=== PATIENT | female | born 1990 | race Caucasian/White ===

== ENCOUNTER 2017-09-08 05:00 | Inpatient (IN) ==
[2017-09-08] MEDS ORDERED: Ringers Solution, Lactated 1,000 ML ONE (05:15)
--- NOTE | 2017-09-08 05:49 | OB/GYN History & Physical ---
Date of Encounter: 09/08/17 Time of Encounter: 05:47 Assessment and Plan (1) 40 weeks gestation of Current visit: Yes Status: Acute (2) Post-dates Current visit: Yes Status: Acute Induction of labor with Cytotec and cervical [place] GBS negative Anticipate Qualifiers: Post-term type: 40-42 weeks gestation Qualified Code(s): O48.0 - Post-term (3) Encounter for planned induction of labor Current visit: Yes Status: Acute (4) MTHFR mutation (methylenetetrahydrofolate reductase) Current visit: Yes Status: Acute (5) Polyhydramnios affecting in third trimester Current visit: Yes Status: Acute History of Present Illness Chief complaint: induction of labor for post dates gestation HPI: Ms. Agudelo is a 27 year old female 40+5 weeks gestation presents to labor and delivery for induction of labor due to postdates gestation. Patient with a history of MTH FR homogenous, with normal homocystine levels, polyhydramnios in this last ultrasound on 08/11 SHANNAN 27, torch titers negative with the exception of a positive HSV, patient with history of cold sores, otherwise uncomplicated course. Patient reports good movement, denies vaginal bleeding, leaking of fluid or contractions. Labs: A+, rubella immune, GBS negative, all other serologies negative Past Med Surg Social Fam HX - Past Surgical History Surgical History: other (wisdom teeth and ear tubes as child. ) - Family History Father Family Member Ethnicity: Non- Living Status: Still Living Hx Family Cardiac Disorders: Yes (HTN) Obstetrical History - Pregnancies : 1 Para: 0 Term: 0 : 0 Ab's: 0 Livin Medications and Allergies Aspirin [Lo-Dose Aspirin EC] 81 mg PO DAILY 09/08/17 [History] Cyanocobalamin/FA/Pyridoxine [Folbic Tablet] 1 each PO DAILY 09/08/17 [History] Vit #108/Iron/FA [ One Tablet] 1 tab PO DAILY 09/08/17 [History ] 3 Allergy/AdvReac Type Severity Reaction Status Date / Time latex Allergy Hives Verified 09/08/17 05:28 Exam - Constitutional Constitutional: well developed, well nourished, no acute distress, average body habitus - Neck Neck exam: full ROM - Lungs Respiratory exam: CTAB - Cardiovascular Cardiovascular exam: RRR - Abdomen Abdomen: Present: bowel sounds normal, gravid, non tender - Extremities Extremities exam: normal capillary refill, normal inspection - Vagina Vagina: Present: normal moisture - Cervix Dilation: 1 Effacement: 75 Station: -2 - Uterus Uterus exam: Present: normal size, normal contour Results All other labs normal.
[2017-09-08] MEDS ORDERED: *HR* Nalbuphine 20 MG/ML AMPUL IVP PRN (05:52)
[2017-09-08] MEDS ORDERED: Famotidine 20 MG/2 ML VIAL IVP PRN (05:52)
[2017-09-08] MEDS ORDERED: Naloxone 0.4 MG/ML INJ IVP PRN (05:52)
[2017-09-08] MEDS ORDERED: Ondansetron 4 MG/2 ML VIAL IVP PRN (05:52)
[2017-09-08] MEDS ORDERED: Metoclopramide 10 MG/2 ML VIAL IVP PRN (05:52)
[2017-09-08] MEDS ORDERED: miSOPROStol 25 MCG TABLET PO PRN (05:58)
[2017-09-08] MEDS ORDERED: Ringers Solution, Lactated 1,000 ML IVC SCH (06:00)
[2017-09-08 06:11] LABS: Amphetamine Screen,Urine Negative ng/mL (Cutoff=1000); Barbiturate Screen,Urine Negative ng/mL (Cutoff=200); Benzodiazepines Screen,Urine Negative ng/mL (Cutoff=200); Cannabinoid Screen,Urine Negative ng/mL (Cutoff = 50); Cocaine Screen,Urine Negative ng/mL (Cutoff= 300); Opiate Screen,Urine Negative ng/mL (Cutoff=300); Phencyclidine Screen,Urine Negative ng/mL (Cutoff=25)
[2017-09-08 06:42] LABS: Basophils % 0.3 %; Eosinophils # 0.9 K/mcL (0.0-0.6); Eosinophils % 8.6 %; Hematocrit 31.8 % (35.3-44.9); Immature Granulocytes % 0.5 % (0-4); Lymphocytes # 2.1 K/mcL (0.6-4.6); Lymphocytes % 19.1 %; Mean Corpuscular HGB Conc 32.1 g/dL (31.6-35.5); Mean Corpuscular Hemoglobin 27.2 pg (28.0-33.3); Mean Corpuscular Volume 84.8 fL (83.0-100.0); Mean Platelet Volume 10.9 fL (9.4-12.4); Monocytes % 9.3 %; Neutrophils # 6.8 K/mcL (1.6-8.9); Platelet Count 217 K/mcL (140-400); Red Blood Count 3.75 M/mcL (3.82-4.97); Red Cell Distribution Width 13.5 % (11.5-14.5); Segmented Neutrophils % 62.2 %
[2017-09-08 06:49] LABS: Hemoglobin 10.2 g/dL (11.5-15.4)
[2017-09-08] MEDS ORDERED: Epidural Premix (fent/bupiv) 110 ML EP SCH (15:45)
[2017-09-08] MEDS ORDERED: Epidural Premix (fent/bupiv) 110 ML EP ONE ×2 (15:54→20:12)
--- NOTE | 2017-09-08 16:41 | Anesthesia Evaluation PreOp ---
Date of Encounter: 09/08/17 Time of Encounter: 15:50 - Past History Planned Operation: SURESH Cardiac History: Denies any Significant Hx Pulmonary History: Denies Any Significant HX SENIOR PUBLICATIONS SPECIALIST History: Denies Any Significant HX Other Medical History: Denies Any Significant HX Anesthesia History: No Prior Anesthetic Complications : Yes Test: Positive Alcohol Use: none Drug use: none Medications and Allergies Aspirin [Lo-Dose Aspirin EC] 81 mg PO DAILY 09/08/17 [History] Cyanocobalamin/FA/Pyridoxine [Folbic Tablet] 1 each PO DAILY 09/08/17 [History] Vit #108/Iron/FA [ One Tablet] 1 tab PO DAILY 09/08/17 [History ] 3 Allergy/AdvReac Type Severity Reaction Status Date / Time latex Allergy Hives Verified 09/08/17 05:28 - Meds/Allergy Pre-op Review Medications Reviewed: Yes Allergies Reviewed: Yes Beta Blockers on Current Med List: No Anesthesia Results - Labs 09/08/17 06:30 Anesthesia Exam - HEENT Pupil (Motor): Pupils equal Mallampati: II Teeth: Normal Oral Opening: Greater than 3 - SENIOR PUBLICATIONS SPECIALIST LOC: Oriented SENIOR PUBLICATIONS SPECIALIST Motor: Normal RUE, Normal LUE, Normal RLE, Normal LLE, Normal Face SENIOR PUBLICATIONS SPECIALIST Sensory: Normal: RUE, LUE, RLE, LLE, Face - Cardiac Rhythm: Regular Murmur: None JVD: No Carotid Bruit: No - Pulmonary Breath Sounds: bilateral Clear Respiratory Effort: Symmetrical Anesthesia Assess/Plan ASA Score: 2 Modified [place] Scale for Level of Consciousness: Cooperative, oriented, and tranquil Anesthetic Plan: Regional Autologous Blood: No Monitoring Plan: Standard Monitors
--- NOTE | 2017-09-08 16:44 | Anesthesia Procedures ---
Date of Encounter: 09/08/17 Time of Encounter: 15:50 Procedures: Anesthesia - Epidural/Spinal Patient ID/Chart reviewed: Yes Patient examined: Yes OB Eval: Gestational age: 40.5 OB Eval: : 1 OB Eval: Hx Para: 0 OB Eval: Contractions: Non-stressed pattern Consent Obtained: Yes Supplemental Oxygen: None/Room Air Site Prep: Aseptic Technique, Sterile prep and drape, Povidone-Iodine 1% Patient position: upright Local Anesthetic: Lidocaine 1% Amount of Local Anesthetic used: 3 Touhy Needle Gauge: 18 Touhy Needle Depth (cm): 5 Catheter Depth at Skin (cm): 7 Test Dose (1.5% Lido + Epi): Volume given (mls): 3 Test Dose Result: Negative Loading Dose Administered: Thru Catheter Infusion Rate (mls/hr): [address]: Tegaderm, Tape Interspace Used: L4-L5 Loss of Resistance (DOUGLAS): Yes Blood: No CSF: No Paresthesia: No Vitals + FHT's: stable throughout see nursing notes
[2017-09-08] MEDS ORDERED: Oxytocin 20 units/ LR 1000 mL 20 UNIT/1,000 ML BAG IVC ONE (18:09)
[2017-09-08] MEDS ORDERED: Oxytocin 20 units/ LR 1000 mL 20 UNIT/1,000 ML BAG IVC SCH (18:15)
--- NOTE | 2017-09-08 19:49 | OB Labor Progress Note ---
Date of Encounter: 09/08/17 Time of Encounter: 19:50 Labor Progress Note - Subjective Subjective: Patient still comfortable with her epidural - Cervix Cervix: 7-8/100/0 - Heart Tones Heart Tones: heart tones 140s reactive - Farrell Farrell: IUPC placed contractions every 2 min - Plan Plan: Continue current care and anticipate normal spontaneous vaginal delivery
[2017-09-08] MEDS ORDERED: *HR* Ropivacaine/PF 0.2% 20 ML VIAL ONE (20:14)
[2017-09-09] MEDS ORDERED: CeFAZolin Syringe 2,000MG/20 ML SYR IVPB ONE (02:39)
--- NOTE | 2017-09-09 02:42 | OB Labor Progress Note ---
Date of Encounter: 09/09/17 Time of Encounter: 02:40 Labor Progress Note - Subjective Subjective: Patient is very uncomfortable requesting a section. She has made no progression and has arrested at approximately 9 cm. Patient has only changed 2 cm in the last 7 hours. There is moderate amount of That noted and she does not want to proceed on any longer. Patient will be scheduled for section. - Cervix Cervix: 9/100/+1 caput noted - Heart Tones Heart Tones: heart tones 140s reactive - Wilburn Wilburn: Contractions every 2 minutes - Plan Plan: Patient will be prepared for a primary low transverse section
[2017-09-09] MEDS ORDERED: Lidocaine/EPI 1:200k 2% PF 20 ML VIAL ONE (02:47)
--- NOTE | 2017-09-09 02:49 | OB/GYN Procedure Note ---
Section - Date of procedure: 09/09/17 Preop diagnosis: other (Intrauterine at 40-5/7 weeks, arrest of descent, cephalopelvic disproportion, large for gestational age infant, polyhydramnios) Post-op diagnosis: same (with persistent occiput posterior presentation) Procedure: primary low transverse Surgeon: Brian Reese Estimated blood loss (cc): 350 Was there an research lab assistant present: No Anesthesiologist: Karissa Conrad Academic Affairs Dean: Elida Harris section complications: none Disposition: L&D Recovery Room - Infant (s) Infant A Infant Delivery Date: 09/09/17 Delivery Time: 03:21 Presentation: vertex Position: LOP Route of delivery: other ( section) Gender: Female Viability: Viable Pounds: 8 Ounces: 5 Gram Weight: 3.765 kg at 1 minute: 8 at 5 minutes: 8 Shoulder Dystocia: not encountered Placenta: spontaneous Cord: nuchal cord, 3 umbilical vessels, nuchal reduced - Narrative Narrative: Patient is a 27-year-old 1 para 0 at 40-5/7 weeks who presented to labor and delivery for induction of labor secondary to term with history of polyhydramnios patient ultrasound 5 weeks ago placing the baby at 3200 g with an SHANNAN of 27 which titers were all normal she wanted to go into labor, did advise if she had not gone into labor by 41 weeks we would induce her. Patient did received [place] catheter and Cytotec this morning this fell out approximately 4 hours later patient was artificially ruptured large amounts of clear fluid was noted. Patient was making progression but very slowly have to be augmented with Pitocin patient progressed to approximately 9 cm and could not progress past this point patient made a 2 cm progression in 7 hours with adequate contractions she became very uncomfortable started noticing moderate amount of caput and epidural was no longer working and she requested a section. Procedure: Patient was taken to the operating room where epidural anesthesia was found be adequate. She was placed in the dorsal supine position with leftward tilt prepped and draped in usual fashion. Timeout was then obtained. Pfannenstiel incision was made with a scalpel and carried down to the underlying tissue to the fascia was identified. Fascia was nicked in midline extended laterally with the Reid scissors. The superior and inferior edges of the fascia grasped tented up and dissected off the rectus muscles. Rectus muscles were in the midline parietal peritoneum was identified tented up and sharply. This was extended superiorly and inferiorly with Metzenbaum scissors. The bladder blade was inserted the vesicouterine peritoneum was identified tented up and entered sharply this is extended laterally the bladder flap was created digitally. The lower uterine segment was incised with a scalpel extended laterally with digital manipulation. The infant's head was disengaged from the pelvis without to the incision and the was fully delivered. The cord was clamped and cut the was handed off to waiting pediatric team. Cord blood was collected, placenta was then spontaneously delivered and the uterus was exteriorized and cleaned of all clots and debris. The lower uterine segment was then closed using an 0 Vicryl in a running locking stitch by a 2 layer closure. Good hemostasis was noted. The uterus was returned to the abdomen, the gutters were cleaned of all clots and debris and copiously irrigated. The fascia was closed using a #1 stratafix in a running stitch and the skin was closed using a 4-0 Vicryl in a subcuticular manner. A PRIMEO dressing was applied and then the patient was taken to the recovery room in stable condition. All needles lap sponge counts were correct 3 she did receive preoperative antibiotics.
[2017-09-09] MEDS ORDERED: CeFAZolin Premix DUPLEX 2,000 MG/50 ML BAG IVPB ONE (03:00)
[2017-09-09] MEDS ORDERED: Ondansetron 4 MG/2 ML VIAL IVP PRN ×3 (03:15→06:37)
[2017-09-09] MEDS ORDERED: *HR* OxyCODONE/APAP 5/325 TABLET PO PRN (03:15)
[2017-09-09] MEDS ORDERED: Ibuprofen 400 MG TABLET PO PRN (03:15)
[2017-09-09] MEDS ORDERED: Acetaminophen IV 1,000 MG/100 ML INFUS..BTL IVPB STA (03:21)
[2017-09-09] MEDS ORDERED: Dexamethasone 4 MG/ML VIAL ONE (03:27)
[2017-09-09] MEDS ORDERED: *HR* Oxytocin 10 UNIT/ML VIAL IM ONE (03:27)
[2017-09-09] MEDS ORDERED: Morphine Sulfate/PF 5mg/10mL Vial ONE (03:27)
[2017-09-09] MEDS ORDERED: Acetaminophen IV 1,000 MG/100 ML INFUS..BTL IVPB ONE (06:37)
[2017-09-09] MEDS ORDERED: Sennosides 8.6 MG TABLET PO PRN (06:37)
[2017-09-09] MEDS ORDERED: Oxytocin 20 units/ LR 1000 mL 20 UNIT/1,000 ML BAG IVC SCH (06:37)
[2017-09-09] MEDS ORDERED: Ringers Solution, Lactated 1,000 ML IVC SCH (06:37)
[2017-09-09] MEDS ORDERED: Metoclopramide 10 MG/2 ML VIAL IVP PRN (06:37)
[2017-09-09] MEDS ORDERED: Ibuprofen 600 MG TABLET PO PRN (06:37)
[2017-09-09] MEDS ORDERED: NON-FORMULARY MEDICATION 1 EACH EACH (Prenatal Vit #108/Iron/Fa [Prenatal One Tablet] 1 TA PO SCH (09:00)
[2017-09-09] MEDS ORDERED: Cyanocobalamin (B-12) 1,000 MCG TABLET PO SCH (09:00)
[2017-09-09] MEDS: Prenatal Vit/FA 1 EACH TABLET PO SCH (12:11)
[2017-09-09] MEDS: Aspirin Enteric Coated 81 MG Tablet PO SCH (12:11)
[2017-09-09] MEDS: Pyridoxine (B-6) 50 MG TABLET PO SCH (12:11)
[2017-09-09] MEDS: Acetaminophen 325 MG TABLET PO PRN ×2 (13:41→20:07)
[2017-09-09] MEDS: Simethicone 80 MG TAB.CHEW PO PRN (15:03)
[2017-09-09] MEDS ORDERED: Lanolin 7 G OINT...G. TP PRN (16:30)
[2017-09-10] MEDS: Acetaminophen 325 MG TABLET PO PRN ×4 (04:01→20:14)
[2017-09-10] MEDS: *HR* OxyCODONE Immed Rel 5 MG TABLET PO PRN ×4 (04:02→20:14)
[2017-09-10 04:48] LABS: Basophils % 0.2 %; Eosinophils # 0.2 K/mcL (0.0-0.6); Eosinophils % 1.3 %; Hematocrit 26.8 % (35.3-44.9); Hemoglobin 8.5 g/dL (11.5-15.4); Lymphocytes % 13.8 %; Mean Corpuscular HGB Conc 31.7 g/dL (31.6-35.5); Mean Corpuscular Hemoglobin 27.5 pg (28.0-33.3); Mean Corpuscular Volume 86.7 fL (83.0-100.0); Mean Platelet Volume 10.7 fL (9.4-12.4); Monocytes % 6.7 %; Neutrophils # 11.1 K/mcL (1.6-8.9); Platelet Count 164 K/mcL (140-400); Red Blood Count 3.09 M/mcL (3.82-4.97); Red Cell Distribution Width 14.2 % (11.5-14.5)
--- NOTE | 2017-09-10 10:09 | OB/GYN Progress Note ---
Date of Encounter: 09/10/17 Time of Encounter: 10:07 - Assessment and Plan (1) MTHFR mutation (methylenetetrahydrofolate reductase) Current Visit: Yes Status: Acute (2) Status post delivery Current Visit: Yes Status: Acute Stable POD #1 Continue current management Anticipate discharge tomorrow (3) anemia Current Visit: Yes Status: Acute Will increase iron to twice daily Subjective - Subjective Interval history: Patient tolerating by mouth diet, pain well managed on by mouth pain medication , voiding without difficulty, no flatus at this time, but positive bowel sounds and no nausea Patient reports: appetite normal, voiding normally, pain well controlled, ambulating normally : doing well Objective - Vital Signs Latest vital signs: Vital Signs Temp Pulse Resp BP Pulse Ox 09/09/17 23:45 98.4 F 81 14 130/80 98 09/09/17 20:05 98.4 F 98 14 129/71 97 09/09/17 17:00 98.5 F 86 16 121/79 09/09/17 11:48 97.6 F 90 18 130/78 96 Intake and Output 09/09/17 09/10/17 09/10/17 23:59 07:59 15:59 Intake Total 400 / 400 Output Total 1150 / 1150 400 / 400 Balance -750 / -750 -400 / -400 Intake: Oral 400 / 400 Output: Urine 100 / 100 400 / 400 Catheter 1050 / 1050 Other: Weight 69.354 kg Patient Weight 09/10/17 23:59 Weight 69.354 kg - Exam Lungs: bilateral: normal Chest: Normal S1, Normal S2 Extremities: Present: normal Abdomen: Present: normal appearance, soft Incision: Present: normal, dry, intact, dressed Uterus: Present: firm Comments: Fundus firm at umbilicus - Labs Labs: Laboratory Results - last 24 hr 09/10/17 04:10 WBC 14.4 H RBC 3.09 L Hgb 8.5 L D Hct 26.8 L MCV 86.7 MCH 27.5 L MCHC 31.7 RDW 14.2 Plt Count 164 MPV 10.7 Immature Gran % 1.0 Seg Neutrophils % 77.0 Lymphocytes % 13.8 Monocytes % 6.7 Eosinophils % 1.3 Basophils % 0.2 Neutrophils # 11.1 H Lymphocytes # 2.0 Monocytes # 1.0 Eosinophils # 0.2 Basophils # 0.0
[2017-09-10] MEDS: Aspirin Enteric Coated 81 MG Tablet PO SCH (10:28)
[2017-09-10] MEDS: Prenatal Vit/FA 1 EACH TABLET PO SCH (10:28)
[2017-09-10] MEDS: Pyridoxine (B-6) 50 MG TABLET PO SCH (10:28)
[2017-09-10] MEDS: Simethicone 80 MG TAB.CHEW PO PRN (15:39)
[2017-09-11] MEDS: *HR* OxyCODONE Immed Rel 5 MG TABLET PO PRN ×2 (00:30→08:44)
--- NOTE | 2017-09-11 09:40 | Discharge Summary ---
Date of Encounter: 09/11/17 Time of Encounter: 09:37 - Discharge Diagnosis (1) anemia Priority: Secondary Status: Acute Comments: hgb 8.5 from 10.2 prior to delivery. She reports some mild dizziness with ambulation shortly after delivery but none recently. Home on iron. (2) Status post delivery Priority: Primary Status: Acute Comments: Pt meeting all milestones. She desires discharge home today. - Discharge Medications Prescriptions: Breast Pump [BREAST PUMP] 1 each .ROUTE AD #1 each Docusate [Colace] 100 mg PO BID #60 capsule Ferrous Sulfate 325 mg PO BIDWM #60 tablet Oxycodone HCl/Acetaminophen [Percocet 5-325 mg Tablet] 1 each PO Q4-6H PRN 3 Days #30 tablet PRN Reason: post-op pain Valacyclovir HCl [Valtrex] 2,000 mg PO Q12H #4 tab Home Medications: Cyanocobalamin/FA/Pyridoxine [Folbic Tablet] 1 each PO DAILY 09/08/17 [History] Vit #108/Iron/FA [ One Tablet] 1 tab PO DAILY 09/08/17 [History ] Breast Pump [BREAST PUMP] 1 each .ROUTE AD #1 each 09/11/17 [Rx] Cyanocobalamin (B-12) [Vitamin B12] 1,000 mcg PO DAILY tablet 09/11/17 [Rx] Docusate [Colace] 100 mg PO BID #60 capsule 09/11/17 [Rx] Ferrous Sulfate 325 mg PO BIDWM #60 tablet 09/11/17 [Rx] Lanolin [Lansinoh] 1 appl TP TID PRN oint...g. 09/11/17 [Rx] Mupirocin [Bactroban Oint] 1 appl TP BID tube 09/11/17 [Rx] Oxycodone HCl/Acetaminophen [Percocet 5-325 mg Tablet] 1 each PO Q4-6H PRN 3 Days #30 tablet 09/11/17 [Rx] Simethicone [Gas-X] 80 mg PO TID PRN tab.chew 09/11/17 [Rx] Valacyclovir HCl [Valtrex] 2,000 mg PO Q12H #4 tab 09/11/17 [Rx] Allergies/Adverse Reactions: 3 Allergy/AdvReac Type Severity Reaction Status Date / Time latex Allergy Hives Verified 09/08/17 05:28 Data Procedures and tests throughout hospitalization: Laboratory Tests 09/08/17 09/08/17 09/08/17 05:20 05:20 06:30 WBC 11.0 RBC 3.75 L Hgb 10.2 L Hct 31.8 L MCV 84.8 MCH 27.2 L MCHC 32.1 RDW 13.5 Plt Count 217 MPV 10.9 Immature Gran % 0.5 Seg Neutrophils % 62.2 Lymphocytes % 19.1 Monocytes % 9.3 Eosinophils % 8.6 Basophils % 0.3 Neutrophils # 6.8 Lymphocytes # 2.1 Monocytes # 1.0 Eosinophils # 0.9 H Basophils # 0.0 Urine Opiates Screen Negative Ur Barbiturates Screen Negative Ur Phencyclidine Scrn Negative Ur Amphetamines Screen Negative U Benzodiazepines Scrn Negative Urine Cocaine Screen Negative U Marijuana (THC) Screen Negative Specimen Rejected Clotted 09/10/17 04:10 WBC 14.4 H RBC 3.09 L Hgb 8.5 L D Hct 26.8 L MCV 86.7 MCH 27.5 L MCHC 31.7 RDW 14.2 Plt Count 164 MPV 10.7 Immature Gran % 1.0 Seg Neutrophils % 77.0 Lymphocytes % 13.8 Monocytes % 6.7 Eosinophils % 1.3 Basophils % 0.2 Neutrophils # 11.1 H Lymphocytes # 2.0 Monocytes # 1.0 Eosinophils # 0.2 Basophils # 0.0 Urine Opiates Screen Ur Barbiturates Screen Ur Phencyclidine Scrn Ur Amphetamines Screen U Benzodiazepines Scrn Urine Cocaine Screen U Marijuana (THC) Screen Specimen Rejected Date of admission: 09/08/17 05:00 Primary care physician: PCP NONE Discharging clinician: Comfort Lopez Anticipated date of discharge: 09/11/17 - Patient Status Disposition: Home, Self-Care Condition: Good Functional capacity at discharge: independent ambulation Overall status at discharge: patient is progressing back to baseline - Discharge Instructions Follow Up With: NONE,PCP [Primary Care Provider] - Brian Reese DO [Partnered Physician] - - Diet and Activity Activity: increase activity as tolerated Diet: regular diet Hospital Course Reason for admission: induction of labor Delivery: Episiotomy: none Laceration: none Other procedures: none complications: none Discharge diagnosis: IUP at term delivered baby: female Hospital course: - Date of procedure: 09/09/17 Preop diagnosis: other (Intrauterine at 40-5/7 weeks, arrest of descent, cephalopelvic disproportion, large for gestational age , polyhydramnios) Post-op diagnosis: same (with persistent occiput posterior presentation) Procedure: primary low transverse Surgeon: Brian Reese Estimated blood loss (cc): 350 Was there an sales assistants and salespersons present: No Anesthesiologist: Karissa Conrad Medical Tech: Elida Harris section complications: none Disposition: L&D Recovery Room - (s) A Infant Delivery Date: 09/09/17 Infant Delivery Time: 03:21 Presentation: vertex Position: LOP Route of delivery: other ( section) Gender: Female Viability: Viable Pounds: 8 Ounces: 5 Gram Weight: 3.765 kg at 1 minute: 8 at 5 minutes: 8 Shoulder Dystocia: not encountered Placenta: spontaneous Cord: nuchal cord, 3 umbilical vessels, nuchal reduced Time Attestation: Total time spent providing and/or coordinating discharge services: Time Spent: Less than 30 minutes - VTE Documentation of Mechanical Device: Intermittent pneumatic compression device Exam - Constitutional Vitals: Temp Pulse Resp BP Pulse Ox 98.7 F 88 14 138/79 97 09/10/17 20:00 09/10/17 20:00 09/10/17 20:00 09/10/17 20:00 09/10/17 20:00 General appearance IM: A&O X 3 - Respiratory Respiratory exam: Present: CTAB - Cardiovascular Cardiovascular exam IM: Present: RRR, +S1, +S2 - GI/Abdominal GI/Abdominal exam IM: soft, no peritoneal signs Incision: dry (no s/sx infection), intact - Uterine Tone: Firm Uterus Position: 2 Fingers Below Umbilicus - Extremities Exam Extremities exam IM: Present: pedal edema (mild bilaterally) - Neurological Exam Neurological exam: normal gait, oriented X3 - Psychiatric Additional comments: reports good mood - Other Additional findings: pt declines contraception prior to discharge.
[2017-09-11 10:12] VITALS: BP 129/80
== END 2017-09-11 13:55 | disposition home or self-care (01) | DRG 765 ==
LOC: 1NENULAB 05:00 → 1NENUOBS 09-09 06:37
PROVIDERS: ADMIT Obstetrics & Gynecology; ATTEND Obstetrics & Gynecology